=== PATIENT | female | born 1950 | race Caucasian/White ===

== ENCOUNTER 2017-12-05 12:17 | Outpatient (CLI) | payer OTHER ==
[2015-05-19 16:58] VITALS: BP 111/72
== END 2017-12-05 12:19 ==
LOC: LAB 12:17
PROVIDERS: ATTEND Family Medicine
DX: E03.9 Hypothyroidism, unspecified (principal); E11.9 Type 2 diabetes mellitus without complications
CPT/HCPCS: 36415; 83036; 84439; 84443

== ENCOUNTER 2018-04-18 14:37 | Outpatient (CLI) | payer OTHER ==
[2015-05-19 16:58] VITALS: BP 111/72
== END 2018-04-18 14:40 ==
LOC: LABRHC 14:37
PROVIDERS: ATTEND Nurse Practitioner Family
DX: N39.0 Urinary tract infection, site not specified (principal); B96.20 Unspecified Escherichia coli [E. coli] as the cause of diseases classified elsewhere
CPT/HCPCS: 87086; 87186

== ENCOUNTER 2018-05-13 11:07 | Outpatient (CLI) | payer OTHER ==
[2015-05-19 16:58] VITALS: BP 111/72
== END 2018-05-13 11:09 ==
LOC: LABRHC 11:07
PROVIDERS: ATTEND Family Medicine
DX: R30.0 Dysuria (principal); B96.20 Unspecified Escherichia coli [E. coli] as the cause of diseases classified elsewhere
CPT/HCPCS: 87086

== ENCOUNTER 2018-12-25 12:27 | Outpatient (CLI) | payer OTHER ==
[2015-05-19 16:58] VITALS: BP 111/72
[2018-12-25 13:08] LABS: eGFR (Non-African) 44
[2018-12-25 15:22] LABS: A1C 5.9 % (<5.7)
== END 2018-12-25 12:32 ==
LOC: LAB 12:27
PROVIDERS: ATTEND Family Medicine
DX: R35.0 Frequency of micturition (principal)
CPT/HCPCS: 36415; 80048; 83036; 87086; 87186

== ENCOUNTER 2019-02-26 16:00 | Outpatient (CLI) | payer OTHER ==
[2015-05-19 16:58] VITALS: BP 111/72
== END 2019-02-26 16:05 ==
LOC: LABRHC 16:00
PROVIDERS: ATTEND Family Medicine
DX: R30.0 Dysuria (principal)
CPT/HCPCS: 87086; 87186